=== PATIENT | female | born 1955 | race American Indian/Alaskan Native ===

== ENCOUNTER 2018-01-10 05:53 | Day surgery (SDC) | payer MEDICARE, MEDICAID ==
[2018-01-04 08:48] VITALS: BMI 39.6
[2018-01-10] MEDS ORDERED: ceFAZolin IV 1 gm in Dextrose 2 GM/100 ML BAG IVPB ONE (07:33)
[2018-01-10] MEDS ORDERED: Midazolam 2 MG/2 ML VIAL ONE (07:47)
[2018-01-10] MEDS ORDERED: Propofol 10 mg/ml Inj (20 ML) ONE (07:47)
[2018-01-10] MEDS ORDERED: Lidocaine/Epinephrine 1% 1:100000 10 ML IJ ONE (07:48)
[2018-01-10] MEDS ORDERED: Rocuronium 10 mg/ml (5 ml) ONE (07:50)
[2018-01-10] MEDS ORDERED: Succinylcholine Chloride 20 mg/ml Syr (5 ml) IV ONE (07:50)
[2018-01-10] MEDS ORDERED: EPINEPHrine 1:1000 Nasal Sol(30mL) ONE (08:06)
[2018-01-10] MEDS ORDERED: ePHEDrine 50 mg/ml Inj ONE (08:46)
[2018-01-10] MEDS ORDERED: HYDROmorphone 0.5 mg/0.5 ml ISec IVP PRN (09:25)
[2018-01-10] MEDS ORDERED: Lactated Ringer's 1,000 ML IV SCH (09:30)
[2018-01-10] MEDS ORDERED: Acetaminophen-Codeine 300/30 mg Tab PO PRN (09:44)
[2018-01-10] MEDS ORDERED: Dextrose 5%/0.45% NS 1,000 ML IV SCH (09:45)
[2018-01-10] MEDS ORDERED: HYDROmorphone 0.5 mg/0.5 ml ISec ONE (10:27)
[2018-01-10 11:41] VITALS: BP 153/8; PULSE 88; RESP 18; TEMP 97; O2SAT 98
--- NOTE | 2018-01-10 20:36 | OP ---
Copied To: Chava Ferrer MD Attending MD: Chava Ferrer MD PROCEDURE DATE: 01/10/2018 PREOPERATIVE DIAGNOSES: Sinusitis, deviated septum, large inferior turbinates. POSTOPERATIVE DIAGNOSES: Sinusitis, deviated septum, large inferior turbinates. PROCEDURES: Endoscopic bilateral ethmoidectomy, endoscopic bilateral maxillary antrostomy, endoscopic bilateral inferior turbinate reduction, septoplasty. SIGNIFICANT FINDINGS: Sinusitis changes noted in the ethmoid sinuses, maxillary antrum stenosed on both sides, enlarged inferior turbinates on both sides, and deviated septum. DESCRIPTION OF PROCEDURE: The patient was brought into room, placed in supine position. Anesthesia was initiated through an ET tube. Shoulder roll was placed, neck extended. The patient was draped in usual manner. The navigation was set up and used throughout the case in order to ensure that the skull base and orbit were not entered. Adrenaline-soaked pledgets were inserted into nasal cavity, it remained there for at least five minutes and removed. The septum was injected with lidocaine with epinephrine on both sides. A [place] incision was made on the left and mucoperichondrial flap was raised. A vertical incision was made in the cartilage leaving a 1.5 cm anterior and superior strut and the mucoperichondrial flap was raised on the other side. Deviated portion of the bone and cartilage were removed using forceps. A quilting suture was used to suture the two flaps together and close the [place] incision. A 0 degree scope was inserted into the nasal cavity. The inferior turbinates were noted to be enlarged on both sides and reduced in size using scissors going from inferior to superior, anterior to posterior direction on both sides, first on the left, then on the right. Bleeding was controlled using suction cautery. Next, the middle turbinates were injected on both sides with lidocaine with epinephrine. Attention was turned to the left. The middle turbinate was medialized. The uncinate process was medialized using a Baxter elevator, removed using forceps. The ethmoid bulla was entered inferomedially using a debrider going posteriorly to the basal lamella, then anterior and superiorly until the ethmoid bulla was removed. The basal lamella was entered. Posterior ethmoid cells were entered and opened. The skull base was identified and followed anteriorly all the way to the area of the anterior ethmoid air cells. Next, a curved suction hooked up to navigation was used to locate the maxillary antrum, which was noted to be stenosed and opened using forceps. Bleeding was controlled using suction cautery and adrenaline-soaked pledgets, then Surgicel. Attention was turned to the other side. The middle turbinate had already been injected with lidocaine with epinephrine. The middle turbinate was medialized. The uncinate process was medialized using a Baxter elevator and removed using forceps. A debrider was used to enter the ethmoid bulla inferomedially going posteriorly to the basal lamella, then anterior and superiorly until the ethmoid bulla was removed. The basal lamella was entered. Posterior ethmoid cells were entered and opened. Skull base was identified and followed anteriorly to the area of the anterior ethmoid air cells. Bleeding was controlled using suction cautery and adrenaline-soaked pledgets. A curved suction hooked up to navigation was used to locate the maxillary antrum, which was noted to be stenosed and opened using forceps. Bleeding was controlled using adrenaline-soaked pledgets. Splints were placed. Stents were placed. The patient was taken off anesthesia and taken to recovery room in stable manner. Chava Ferrer MD
== END 2018-01-10 12:41 | disposition home or self-care (01) ==
LOC: C.SDS 05:53 → C.OPSURG 05:53
PROVIDERS: ATTEND Otolaryngology
DX: J34.2 Deviated nasal septum (principal); J34.3 Hypertrophy of nasal turbinates; J32.0 Chronic maxillary sinusitis; J32.2 Chronic ethmoidal sinusitis
CPT/HCPCS: 30130; 30520; 31020; 31201; 61781; 82948; 88304; J0690; J1100; J1170; J2250; J2405; J2704; J3010; J7042; J7120

== ENCOUNTER 2018-05-25 18:54 | Outpatient (CLI) | payer MEDICAID | END 2018-05-25 18:55 | disposition home or self-care (01) | LOC: C.SLEEP 18:55 | DX: G47.33 Obstructive sleep apnea (adult) (pediatric) (principal) ==